=== PATIENT | male | born 1990 | race Caucasian/White ===

== ENCOUNTER 2020-03-07 15:25 | Emergency (ER) | payer OTHER ==
[2020-03-07 15:49] VITALS: BP 139/81; PULSE 84; TEMP 98; BMI 34.2
[2020-03-07] MEDS ORDERED: IBUPROFEN 600 MG TABLET (FP) PO ONE ×2 (15:56→16:03)
[2020-03-07] MEDS ORDERED: LIDOCAINE 5% TOPICAL PATCH ONE (16:03)
[2020-03-07] MEDS ORDERED: LIDOCAINE 5% TOPICAL PATCH TP ONE (16:03)
[2020-03-07] MEDS ORDERED: LIDOCAINE PATCH REMOVAL MC SCH (22:00)
== END 2020-03-07 16:39 | disposition home or self-care (01) ==
LOC: FER 15:25
DX: M54.42 Lumbago with sciatica, left side (principal)
CPT/HCPCS: 99283-25

== ENCOUNTER 2021-01-10 17:18 | Emergency (ER) | payer OTHER ==
[2021-01-10 17:24] VITALS: BP 157/88; PULSE 77; TEMP 98.4; BMI 34.2
[2021-01-10] MEDS ORDERED: KETOROLAC TROMETHAMINE 60 MG/2 ML VIAL IM ONE (17:34)
[2021-01-10] MEDS ORDERED: KETOROLAC TROMETHAMINE 60 MG/2 ML VIAL ONE (17:39)
== END 2021-01-10 18:06 | disposition home or self-care (01) ==
LOC: SUPCPDRO 17:18 → FER 17:18
PROC: 3E0233Z Introduction of Anti-inflammatory into Muscle, Percutaneous Approach (ICD-10-PCS; principal; 2021-01-10)
DX: M54.50 Low back pain, unspecified (principal)
CPT/HCPCS: 99283-25

== ENCOUNTER 2023-07-12 09:06 | Emergency (ER) | payer OTHER ==
[2023-07-12 09:17] VITALS: BP 163/90; PULSE 70; RESP 18; TEMP 98; BMI 36.1
[2023-07-12] MEDS ORDERED: diphenhydrAMINE HCL 25 MG CAPSULE (FP) PO ONE (10:09)
[2023-07-12] MEDS ORDERED: FAMOTIDINE 20 MG TABLET ONE (10:10)
[2023-07-12] MEDS ORDERED: DEXAMETHASONE SOD PHOSPHATE 10 MG/1 ML VIAL ONE (10:10)
[2023-07-12] MEDS: DEXAMETHASONE SOD PHOSPHATE 10 MG/1 ML VIAL PO ONE (10:16)
[2023-07-12] MEDS: diphenhydrAMINE HCL 25 MG CAPSULE (FP) PO ONE (10:16)
[2023-07-12] MEDS: FAMOTIDINE 20 MG TABLET PO ONE (10:17)
== END 2023-07-12 11:07 | disposition home or self-care (01) ==
LOC: JERFT 09:06
DX: L50.9 Urticaria, unspecified (principal); J30.9 Allergic rhinitis, unspecified
CPT/HCPCS: 99283-25; J1100